=== PATIENT | female | born 1990 | race Hispanic/Latino ===

== ENCOUNTER 2021-09-16 01:45 | Inpatient (IN) | payer OTHER ==
[2021-09-16] VITALS (7 sets, daily range): BP systolic 103–124; BP diastolic 66–82
[~2021-09-16] VITALS: Ht 162.6 cm; Wt 102.1 kg
[2021-09-16] MEDS ORDERED: LACTATED RINGERS 1000ML 1,000 ML IV PRN (02:00)
[2021-09-16] MEDS ORDERED: OXYTOCIN-LR 20 UNITS/1000 ML 1,000 ML IV SCH (02:35)
[2021-09-16 02:37] LABS: HEMATOCRIT 40.2 % (36-48); MEAN CORPUSCULAR HEMOGLOBIN 29.6 pg (27.0-33.0); MEAN CORPUSCULAR HGB CONC 32.6 g/dL (32.0-36.0); MEAN CORPUSCULAR VOLUME 90.7 fL (79-99); RED BLOOD CELL COUNT(AUTO) 4.43 MIL/uL (4.00-5.50); RED CELL DISTRIBUTION WIDTH 14.6 % (11.0-15.5); WHITE BLOOD COUNT (AUTO) 11.9 K/uL (4.8-10.8)
[2021-09-16 03:25] LABS: APPEARANCE,URINE Clear (CLEAR); BILIRUBIN,URINE Negative (NEGATIVE); COLOR,URINE Yellow (YELLOW); GLUCOSE, URINE (UA) Negative (NEGATIVE); KETONES,URINE Negative (NEGATIVE); LEUKOCYTE ESTERASE ,URINE Trace (NEGATIVE); NITRATE,URINE Negative (NEGATIVE); OCCULT BLOOD,URINE Negative (NEGATIVE); PROTEIN,URINE Negative (NEGATIVE); UROBILINOGEN,URINE 0.2 mg/dL (0.2-1.0)
[2021-09-16] MEDS ORDERED: ACETAMINOPHEN WITH CODEINE 1 TAB TAB PO PRN (04:00)
[2021-09-16] MEDS ORDERED: ACETAMINOPHEN 325 MG TAB PO PRN (04:00)
[2021-09-16] MEDS ORDERED: MEASLES/MUMPS/RUBELLA VACCINE, LIVE 0.5 ML/VIAL SQ PRN (04:00)
[2021-09-16] MEDS ORDERED: DIPH,PERTUSS(ACELL),TET VAC/PF 0.5 ML VIAL IM PRN (04:00)
[2021-09-16] MEDS ORDERED: BENZOCAINE/LANOLIN/ALOE VERA 60 ML AEROSOL TP PRN (04:00)
[2021-09-16] MEDS ORDERED: WITCH HAZEL 1 PAD TP PRN (04:00)
[2021-09-16] MEDS ORDERED: LANOLIN 30GM OINTMENT TP PRN (04:00)
[2021-09-16] MEDS: OXYTOCIN-LR 20 UNITS/1000 ML 1,000 ML IV SCH ×2 (04:44→20:09)
[2021-09-16 05:40] LABS: RBC,URINE 0-1 /HPF (0-1); SQUAMOUS EPITHELIAL CELL,UR Few /HPF (0-2)
[2021-09-16 05:41] LABS: BACTERIA,URINE Few /HPF (None Seen)
[2021-09-16] MEDS ORDERED: PREN-154 PO (06:08)
[2021-09-16 08:44] LABS: RAPID PLASMA REAGIN NONREACTIVE (NONREACTIVE)
[2021-09-16] MEDS: DOCUSATE SODIUM 100 MG CAP PO SCH ×2 (09:10→21:04)
[2021-09-16] MEDS: IBUPROFEN 600 MG TABLET PO PRN (09:10)
[2021-09-17 03:37] VITALS: BP 103/69
[2021-09-17 06:44] LABS: HEMATOCRIT 31.8 % (36-48); MEAN CORPUSCULAR HEMOGLOBIN 29.2 pg (27.0-33.0); MEAN CORPUSCULAR HGB CONC 31.8 g/dL (32.0-36.0); MEAN CORPUSCULAR VOLUME 91.9 fL (79-99); RED BLOOD CELL COUNT(AUTO) 3.46 MIL/uL (4.00-5.50); RED CELL DISTRIBUTION WIDTH 14.9 % (11.0-15.5); WHITE BLOOD COUNT (AUTO) 9.8 K/uL (4.8-10.8)
[2021-09-17 07:35] VITALS: BP 114/68
[2021-09-17] MEDS: IBUPROFEN 600 MG TABLET PO PRN (08:02)
[2021-09-17] MEDS: DOCUSATE SODIUM 100 MG CAP PO SCH (08:02)
[2021-09-17 11:30] VITALS: BP 120/80
== END 2021-09-17 13:35 | disposition home or self-care (01) | DRG 807 ==
LOC: EDH 01:45 → LDH 02:15 → WSH 07:02
PROVIDERS: ADMIT Obstetrics & Gynecology; ATTEND Obstetrics & Gynecology
PROC: 10E0XZZ Delivery of Products of Conception, External Approach (ICD-10-PCS; principal; 2021-09-16)
PROC: 10907ZC Drainage of Amniotic Fluid, Therapeutic from Products of Conception, Via Natural or Artificial Opening (ICD-10-PCS; 2021-09-16)
DX: O69.81X0 Labor and delivery complicated by cord around neck, without compression, not applicable or unspecified (principal); Z37.0 Single live birth; Z3A.40 40 weeks gestation of pregnancy
CPT/HCPCS: 36415; 81001; 85027; 86592; 86701; 86850; 86900; 86901; 87340; 87390; G0378; J2590